=== PATIENT | female | born 1950 | race Caucasian/White ===

== ENCOUNTER 2021-07-13 07:45 | Emergency (ER) | payer OTHER ==
[2021-07-13 08:44] LABS: Absolute Lymphocytes (CBC) 1.6 K/uL (0.7-4.9); Hematocrit 45.7 % (36.0-45.0); MPV 8.4 fL (7.6-11.3); RBC Red Blood Cell Count 4.81 M/uL (3.86-4.86)
[2021-07-13 08:48] LABS: Protime INR 0.87
--- NOTE | 2021-07-13 08:53 | RAD REPORT ---
EXAM DESCRIPTION: CT - Head Brain Wo Cont - 07/13/2021 8:38 am CLINICAL HISTORY: Dizziness, non-specific Headache, drowsiness COMPARISON: No comparisons TECHNIQUE: All CT scans are performed using dose optimization technique as appropriate and may inclu de automated exposure control or mA/KV adjustment according to patient size. FINDINGS: No intracranial hemorrhage, hydrocephalus or extra-axial fluid collection.Prominent brain atrophy.No areas of brain edema or evidence of midline shift. The paranasal sinuses and mastoids are clear. The calvarium is intact. IMPRESSION: No acute intracranial abnormality.
[2021-07-13 09:10] LABS: Albumin 3.9 g/dL (3.4-5.0); Bilirubin Direct 0.2 mg/dL (0-0.2); Bilirubin Total 0.6 mg/dL (0.2-1.0); Magnesium 2.1 mg/dL (1.8-2.4); Potassium 3.8 mmol/L (3.5-5.1); Protein, Total 7.6 g/dL (6.4-8.2); Thyroid Stimulating Hormone 1.88 uIU/mL (0.360-3.740); Troponin High Sensitivity 4.9 pg/mL (<58.9)
--- NOTE | 2021-07-13 09:20 | RAD REPORT ---
EXAM DESCRIPTION: RAD - Chest Single View - 07/13/2021 9:04 am CLINICAL HISTORY: PALPITATIONS Chest pain. COMPARISON: No comparisons FINDINGS: Portable technique limits examination quality. The right hemidiaphragm is elevated without clear etiology. The lungs are grossly clear. The heart is normal in size. No displaced fractures.
--- NOTE | 2021-07-13 10:32 | ER ---
Nurse's Notes [facility] Name: Patience Lofton Age: 71 yrs Sex: Female : 1950 Arrival Date: 07/13/2021 Time: 07:48 Bed 13 Private MD: Diagnosis: Palpitations;Essential (primary) hypertension Presentation: 07/13 07:52 Chief complaint: Patient states: she started feeling dizzy last night, and reports ap3 associated "feeling of flutters" in her chest. Patient denies nausea and vomiting, and also denies chest pain. Coronavirus screen: At this time, the client does not indicate any symptoms associated with coronavirus-19. Ebola Screen: No symptoms or risks identified at this time. Initial Sepsis Screen: Does the patient meet any 2 criteria? No. Patient's initial sepsis screen is negative. Does the patient have a suspected source of infection? No. Patient's initial sepsis screen is negative. Risk Assessment: Do you want to hurt yourself or someone else? Patient reports no desire to harm self or others. Onset of symptoms was July 12, 2021. 07:52 Method Of Arrival: Ambulatory ap3 07:52 Acuity: PRECIOUS 2 ap3 Triage Assessment: 07:55 Headache History: Denies prior headaches. General: Appears in no apparent distress. ap3 Behavior is calm, cooperative. Pain: Complains of pain in head Pain currently is 3 out of 10 on a pain scale. Pain began gradually, 1 day ago. Also complains of heart flutters. Neuro: Level of Consciousness is awake, alert, obeys commands, Oriented to person, place, time, situation, Appropriate for age Gait is steady, Speech is normal. Cardiovascular: Reports lightheadedness, palpitations. Respiratory: Airway is patent Respiratory effort is even, unlabored. Historical: - Allergies: 07:54 PENICILLINS; ap3 - Home Meds: 07:54 None [Active]; ap3 - PMHx: 07:54 None; ap3 - Immunization history:: Client reports having NOT received the Covid vaccine. Flu vaccine is not up to date. - Social history:: Smoking status: Patient denies any tobacco usage or history of. Screenin:56 Abuse screen: Denies threats or abuse. Nutritional screening: No deficits noted. ap3 Tuberculosis screening: No symptoms or risk factors identified. Fall Risk None identified. Assessment: 08:15 General: Appears in no apparent distress. comfortable, well groomed, Behavior is calm, jh6 cooperative. 08:15 Pain: Complains of pain in anterior aspect of left upper chest Pain currently is 0 out jh6 of 10 on a pain scale. at worst was 2 out of 10 on a pain scale. Quality of pain is described as flutter Pain began 1 day ago. Is intermittent. Neuro: Reports dizziness, since last night when laying down or turning head. Cardiovascular: Reports palpitations, Capillary refill < 3 seconds JVD is absent Patient's skin is warm and dry. Respiratory: No deficits noted. Airway is patent Trachea midline Respiratory effort is even, unlabored, Respiratory pattern is regular, symmetrical. 09:10 Reassessment: No changes from previously documented assessment. Patient and/or family jh6 updated on plan of care and expected duration. Pain level reassessed. Patient is alert, oriented x 3, equal unlabored respirations, skin warm/dry/pink. no episodes of palpitations at this time. Patient denies pain at this time. Patient states symptoms have improved. 10:20 Reassessment: Patient and/or family updated on plan of care and expected duration. Pain jh6 level reassessed. Patient is alert, oriented x 3, equal unlabored respirations, skin warm/dry/pink. Patient denies pain at this time. 11:00 Reassessment: Patient and/or family updated on plan of care and expected duration. Pain jh6 level reassessed. Patient is alert, oriented x 3, equal unlabored respirations, skin warm/dry/pink. no dizziness or palpitations per pt. states that she is feeling "fine". pt is aware that he BP is elevated and has been during her stay, provider is sending pt home with low dose BP meds and follow up with new PCP. Patient denies pain at this time. Vital Signs: 07:52 BP 200 / 108; Pulse 77; Temp 98.3; Pulse Ox 97% on R/A; Weight 83.91 kg; Height 5 ft. 6 ap3 in. (167.64 cm); 09:00 BP 176 / 100; Pulse 69; Resp 18; Pulse Ox 96% ; Pain 0/10; jh6 10:20 BP 199 / 90; Pulse 70; Resp 18; Pulse Ox 100% ; Pain 0/10; jh6 11:15 BP 177 / 98; Pulse 68; Resp 17; Temp 97.9(O); Pulse Ox 100% ; Pain 0/10; jh6 07:52 Body Mass Index 29.86 (83.91 kg, 167.64 cm) ap3 ED Course: 07:48 Patient arrived in ED. ds1 07:54 Triage completed. ap3 07:56 Arm band placed on right wrist. ap3 08:04 Georgina Young, DENA is Primary Nurse. jh6 08:07 Carlos Epperson NP is PHCP. pm1 08:07 Margaret Beckman MD is Attending Physician. pm1 08:20 Inserted saline lock: 20 gauge in right antecubital area, using aseptic technique. jh6 hand, using aseptic technique. Blood collected. 08:20 Initial lab(s) drawn, by me, sent to lab. EKG done, by ED staff, reviewed by Margaret Beckman MD. 08:[address] via wheelchair. jh6 08:38 CT Head Brain wo Cont In Process Unspecified. EDMS 08:58 X-ray(s) taken. jh6 09:06 XRAY Chest (1 view) In Process Unspecified. EDMS 11:28 IV discontinued, intact, bleeding controlled, No redness/swelling at site. Pressure jh6 dressing applied. Administered Medications: No medications were administered Medication: 07:56 VIS not applicable for this client. ap3 Outcome: 10:31 Discharge ordered by . pm1 11:27 Discharged to home ambulatory. 6 11:27 Condition: improved 11:27 Discharge instructions given to patient, family, Instructed on discharge instructions, follow up and referral plans. Demonstrated understanding of instructions, follow-up care, medications, Prescriptions given X 1. 11:29 Patient left the ED. Signatures: Dispatcher [employer] EDAZ Jennifer Bacon ds1 Cleo Dorsey RN RN Carlos Epperson NP TELEGRAPH EDITOR pm1 Mylene Hill RN RN ap3 Georgina Young RN RN 6
--- NOTE | 2021-07-13 10:32 | EDPHYS ---
Physician Documentation [facility] Name: Patience Lofton Age: 71 yrs Sex: Female : 1950 Arrival Date: 07/13/2021 Time: 07:48 Bed 13 Private MD: ED Physician Margaret Beckman HPI: 07/13 08:24 This 71 yrs old Female presents to ER via Ambulatory with complaints of Palpitations. pm1 08:24 The patient presents with a history of irregular heart beat, fluttering. Context: The pm1 symptoms occur at rest. Onset: The symptoms/episode began/occurred this morning, at 02:00. Duration: The patient or guardian reports a single episode, that is still ongoing. Modifying factors: The symptoms are aggravated by nothing. The symptoms are alleviated by nothing. Associated signs and symptoms: Pertinent positives: Dizziness, Pertinent negatives: chest pain, nausea, SOB, vomiting, Headache, abdominal pain. Severity of symptoms: in the emergency department the symptoms are unchanged Pain is currently a 0 / 10. The patient has experienced a previous episode, A few months ago. The patient has not recently seen a physician, and does not have an established primary care provider. Historical: - Allergies: 07:54 PENICILLINS; ap3 - Home Meds: 07:54 None [Active]; ap3 - PMHx: 07:54 None; ap3 - Immunization history:: Client reports having NOT received the Covid vaccine. Flu vaccine is not up to date. - Social history:: Smoking status: Patient denies any tobacco usage or history of. ROS: 08:24 Constitutional: Negative for fever, chills, and weight loss. pm1 08:24 Respiratory: Negative for shortness of breath, cough, wheezing, and pleuritic chest pain, Abdomen/GI: Negative for abdominal pain, nausea, vomiting, diarrhea, and constipation, Back: Negative for injury and pain, MS/Extremity: Negative for injury and deformity, Skin: Negative for injury, rash, and discoloration. 08:24 Cardiovascular: Positive for palpitations, Negative for chest pain, edema. 08:24 Neuro: Positive for dizziness, Negative for headache, numbness, tingling, weakness. 08:24 All other systems are negative. Exam: 08:24 Constitutional: This is a well developed, well nourished patient who is awake, alert, pm1 and in no acute distress. Head/Face: Normocephalic, atraumatic. 08:24 Back: No spinal tenderness. No costovertebral tenderness. Full range of motion. Skin: Warm, dry with normal turgor. Normal color with no rashes, no lesions, and no evidence of cellulitis. MS/ Extremity: Pulses equal, no cyanosis. Neurovascular intact. Full, normal range of motion. 08:24 Eyes: Exam is negative for acute changes, Extraocular movements: no acute changes. 08:24 ENT: Exam is negative for acute changes, Mouth: no acute changes, Lips: normal, moist, Oral mucosa: normal, pink and intact, moist. 08:24 Cardiovascular: Exam negative for acute changes, Rate: normal, Rhythm: regular, Pulses: no pulse deficits are appreciated, Heart sounds: normal, normal S1and S2, Edema: is not appreciated. 08:24 Respiratory: Exam negative for acute changes, respiratory distress, shortness of breath, Breath sounds: are clear throughout. 08:24 Abdomen/GI: Inspection: obese Palpation: abdomen is soft and non-tender, in all quadrants. 08:24 Neuro: Exam negative for acute changes, Orientation: is normal, Mentation: is normal, Motor: is normal, moves all fours. Vital Signs: 07:52 BP 200 / 108; Pulse 77; Temp 98.3; Pulse Ox 97% on R/A; Weight 83.91 kg; Height 5 ft. 6 ap3 in. (167.64 cm); 09:00 BP 176 / 100; Pulse 69; Resp 18; Pulse Ox 96% ; Pain 0/10; jh6 10:20 BP 199 / 90; Pulse 70; Resp 18; Pulse Ox 100% ; Pain 0/10; jh6 11:15 BP 177 / 98; Pulse 68; Resp 17; Temp 97.9(O); Pulse Ox 100% ; Pain 0/10; jh6 07:52 Body Mass Index 29.86 (83.91 kg, 167.64 cm) ap3 MDM: 08:08 Patient medically screened. pm1 08:31 Data reviewed: vital signs. Data interpreted: Pulse oximetry: on room air is 97 %. pm1 Interpretation: normal. 10:30 Counseling: I had a detailed discussion with the patient and/or guardian regarding: the pm1 historical points, exam findings, and any diagnostic results supporting the discharge/admit diagnosis, lab results, radiology results, the need for outpatient follow up, a family practitioner, to return to the emergency department if symptoms worsen or persist or if there are any questions or concerns that arise at home. 10:30 Special discussion: I have referred the patient to see his PCP for further evaluation pm1 of high blood pressure. 10:30 ED course: Patient requested starting her on blood pressure medications today. pm07/13 08:20 Order name: Basic Metabolic Panel; Complete Time: 09:21 pm07/13 08:20 Order name: CBC with Diff; Complete Time: 08:47 pm07/13 08:20 Order name: LFT's; Complete Time: 09:21 pm07/13 08:20 Order name: Magnesium; Complete Time: 09:21 pm07/13 08:20 Order name: NT PRO-BNP; Complete Time: 09:21 pm07/13 08:20 Order name: PT-INR; Complete Time: 08:51 pm07/13 08:20 Order name: Troponin HS; Complete Time: 09:21 pm07/13 08:20 Order name: XRAY Chest (1 view); Complete Time: 09:21 pm07/13 08:20 Order name: EKG; Complete Time: 08:21 pm07/13 08:20 Order name: Cardiac monitoring 07/13 08:20 Order name: EKG - Nurse/Tech 07/13 08:20 Order name: IV Saline Lock pm07/13 08:20 Order name: TSH; Complete Time: 09:21 pm07/13 08:21 Order name: CT Head Brain wo Cont; Complete Time: 09:04 pm07/13 08:20 Order name: Labs collected and sent 07/13 08:20 Order name: O2 Per Protocol pm07/13 08:20 Order name: O2 Sat Monitoring 07/13 08:20 Order name: Orthostatic Blood Pressure pm1 Administered Medications: No medications were administered Disposition Summary: 07/13/21 10:31 Discharge Ordered Location: Home pm1 Problem: new pm1 Symptoms: have improved pm1 Condition: Stable pm1 Diagnosis - Palpitations pm1 - Essential (primary) hypertension pm1 Followup: pm1 - With: Emergency Department - When: As needed - Reason: Worsening of condition Followup: pm1 - With: Private Physician - When: 2 - 3 days - Reason: Recheck today's complaints, Continuance of care, Re-evaluation by your physician Discharge Instructions: - Discharge Summary Sheet pm1 - Hypertension, Adult pm1 - Palpitations pm1 - Form - Blood Pressure Record Sheet pm1 - DASH Eating Plan pm1 - Managing Your Hypertension pm1 - How to Take Your Blood Pressure pm1 Forms: - Medication Reconciliation Form pm1 - Thank You Letter pm1 - Antibiotic Education pm1 - Prescription Opioid Use pm1 Prescriptions: - Lisinopril 10 mg Oral Tablet - take 1 tablet by ORAL route once daily; 20 tablet; Refills: 0, Product pm1 Selection Permitted Signatures: Dispatcher [employer] Carlos Melissa NP SOIL SCIENCE TEACHER pm1 Mylene Hill RN RN ap3
[2021-07-13 11:39] VITALS: O2SAT 100
[2021-07-13 11:41] VITALS: BP 177/98; TEMP 97.9
--- NOTE | 2021-07-16 11:31 | EKG ---
Test Date: 2021-07-13 Test Time: 07:58:16 Service Trainer: ALP MEASUREMENT RESULTS: Intervals: Rate: 71 SD: 152 QRSD: 82 QT: 396 QTc: 430 [place]: P: 56 SD: 152 QRS: 23 T: 54 INTERPRETIVE STATEMENTS: Normal sinus rhythm Nonspecific ST abnormality Abnormal ECG No previous ECG available for comparison Electronically Signed On 07-16-21 11:24:10 CDT by Mark Novak
== END 2021-07-13 11:29 | disposition home or self-care (01) ==
LOC: ER 07:45
DX: I10 Essential (primary) hypertension (principal); Z88.0 Allergy status to penicillin
CPT/HCPCS: 36415; 70450; 71045; 80048; 80076; 83735; 83880; 84443; 84484; 85025; 85610; 93005; 99284